=== PATIENT | female | born 1975 | race Caucasian/White ===

== ENCOUNTER → 2021-06-24 01:52 | Outpatient (CLI) | payer BC, SELFPAY ==
--- NOTE | 2021-06-24 14:30 | DI.MRI_ITS ---
Exam(s) MR LOWER EXTREMITY LT WO EXAM: MR LOWER EXTREMITY LT WO CLINICAL HISTORY: PAIN/INSTABILITY LT MIDFOOT, ? LISFRANC INJURY. TECHNIQUE: Multiplanar multisequence MRI was performed. COMPARISON: No exams were available for comparison FINDINGS: MR of the foot was performed according to the usual protocol. No bony signal abnormality seen. No focal ligamentous or tendinous abnormality. The requisition raises the possibility of a Lisfranc inj ury. Marrow signal appears normally in mid foot. Lisfranc ligament appears intact. Normal alignmen t of the metatarsals and cuneiform bones is noted. No significant soft tissue edema. No fluid collection or abscess. IMPRESSION: Negative midfoot MRI, no evidence of Lisfranc injury. DATA REPOSITORY:
== END ==
PROVIDERS: Visit Provider Podiatrist
DX: M25.375 Other instability, left foot (principal)
CPT/HCPCS: 73718